=== PATIENT | male | born 1965 | race Caucasian/White ===

== ENCOUNTER → 2020-02-27 | Outpatient (CLI) | payer OTHER ==
[~2020-02-27] MED LIST: SEPTRA DS TABLE1 TAB PO
== END | disposition home or self-care (01) ==
LOC: LAB 06:27
PROVIDERS: ATTEND Anesthesiology Pain Medicine
DX: U07.1 COVID-19 (principal); J11.1 Influenza due to unidentified influenza virus with other respiratory manifestations